=== PATIENT | female | born 1970 | race Caucasian/White ===

== ENCOUNTER 2025-01-08 10:53 | Emergency (ER) | payer BC ==
[~2025-01-08] VITALS: Ht 170.2 cm; Wt 84.8 kg
[~2025-01-08 10:53] MED LIST: CRUTCH4 USE
[2025-01-08 11:06] VITALS: BP 178/95
== END 2025-01-08 12:54 | disposition home or self-care (01) ==
LOC: ER 10:53
DX: M79.671 Pain in right foot (principal); Z79.899 Other long term (current) drug therapy
CPT/HCPCS: 73630; 99283-25; A9270